=== PATIENT | female | born 1990 | race Caucasian/White ===

== ENCOUNTER 2020-05-15 15:09 | Emergency (ER) | payer OTHER ==
[2020-05-15 18:03] LABS: BASOPHIL 0.3 % (0-2); EOSINOPHIL 1.6 % (0-5); HCT 44.4 % (37.0-47.0); HGB 14.7 g/dl (12.5-16.0); LYMPHOCYTE 25.9 % (15-48); MCH 32.1 pg (25.0-31.0); MCHC 33.1 g/dL (32.0-36.0); MCV 96.9 fL (78.0-100.0); MONOCYTE 7.4 % (0-12); MPV 10.5 fL (6.0-9.5); NEUTROPHIL 63.7 % (41-80); NRBC 0; PLT 375 K/uL (150-400); RBC 4.58 M/uL (4.20-5.40); RDW 12.3 % (11.5-14.0); WBC 13.1 K/uL (4.0-10.5)
[2020-05-15 18:11] LABS: AMPHETAMINES NEGATIVE (NEGATIVE); BARBITURATES NEGATIVE (NEGATIVE); BILIRUBIN NEGATIVE (NEGATIVE); BLOOD NEGATIVE Ery/uL (NEGATIVE); CLARITY CLEAR (CLEAR); COLOR YELLOW (YELLOW); ECSTASY (MDMA) NEGATIVE (NEGATIVE); GLUCOSE (U) NORMAL (NORMAL); LEUKOCYTES NEGATIVE Leu/uL (NEGATIVE); MARIJUANA (THC) NEGATIVE (NEGATIVE); METHADONE NEGATIVE (NEGATIVE); NITRITE NEGATIVE (NEGATIVE); OPIATES NEGATIVE (NEGATIVE); OXYCODONE NEGATIVE (NEGATIVE); PROTEIN NEGATIVE (NEGATIVE); UROBILINOGEN 0.2 mg/dL (0.2-1.0); pH 7.5 (5.0-9.0)
[2020-05-15 18:12] LABS: ALBUMIN 3.8 g/dL (3.4-5.0); BILIRUBIN - TOTAL 0.2 mg/dL (0.2-1.0); BUN/CREAT RATIO (CALC) 25.9 RATIO; CREATININE 0.54 mg/dL (0.51-0.95); POTASSIUM 3.8 mmol/L (3.5-5.1); TOTAL PROTEIN 7.8 g/dL (6.4-8.2)
[2020-05-15] MEDS ORDERED: BACLOFEN 10MG T10 MG PO (19:29)
[2020-05-15] MEDS ORDERED: NAPROXEN500 MG PO (19:29)
== END 2020-05-15 19:48 | disposition home or self-care (01) ==
LOC: FER 15:09
PROVIDERS: Nurse Practitioner Family
DX: S39.012A Strain of muscle, fascia and tendon of lower back, initial encounter (principal); R10.9 Unspecified abdominal pain; E78.5 Hyperlipidemia, unspecified; Z98.890 Other specified postprocedural states; X58.XXXA Exposure to other specified factors, initial encounter
CPT/HCPCS: 36415; 72110; 80053; 80305; 81003; 82150; 83690; 85025; J1100; J1885

== ENCOUNTER 2020-09-04 06:15 | Emergency (ER) | payer OTHER ==
[~2020-09-04 06:15] MED LIST: BACLOFEN 10MG T10 MG PO; NAPROXEN500 MG PO
[2020-09-04 06:48] LABS: BILIRUBIN NEGATIVE (NEGATIVE); BLOOD NEGATIVE Ery/uL (NEGATIVE); CLARITY CLEAR (CLEAR); COLOR YELLOW (YELLOW); GLUCOSE (U) NORMAL (NORMAL); LEUKOCYTES NEGATIVE Leu/uL (NEGATIVE); NITRITE NEGATIVE (NEGATIVE); PROTEIN NEGATIVE (NEGATIVE); UROBILINOGEN 0.2 mg/dL (0.2-1.0)
[2020-09-04 06:50] LABS: BASOPHIL 0.3 % (0-2); EOSINOPHIL 1.2 % (0-5); HCT 44.1 % (37.0-47.0); HGB 15.4 g/dl (12.5-16.0); LYMPHOCYTE 19.1 % (15-48); MCH 32.4 pg (25.0-31.0); MCHC 34.9 g/dL (32.0-36.0); MCV 92.8 fL (78.0-100.0); MONOCYTE 5.1 % (0-12); MPV 10.7 fL (6.0-9.5); NEUTROPHIL 73.6 % (41-80); NRBC 0; PLT 374 K/uL (150-400); RBC 4.75 M/uL (4.20-5.40); RDW 12.8 % (11.5-14.0); WBC 14.9 K/uL (4.0-10.5)
== END 2020-09-04 08:33 | disposition home or self-care (01) ==
LOC: FER 06:15
PROVIDERS: Emergency Medicine
DX: K85.90 Acute pancreatitis without necrosis or infection, unspecified (principal)
CPT/HCPCS: 36415; 81003; 85025